=== PATIENT | female | born 1940 | race Caucasian/White ===

== ENCOUNTER → 2017-01-06 08:21 | Outpatient (CLI) | payer MEDICARE, OTHER ==
[2017-01-06 09:29] LABS: BASOPHILS 0.3 % (0-2); EOSINOPHILS 2.1 % (0-7); HEMOGLOBIN 15.2 g/dL (12-16); IMMATURE GRANULOCYTES 0.3 % (0-5); LYMPHOCYTES 18.3 % (15-50); MCH 30.2 pg (26.0-34.0); MCV 91.3 fL (80.0-100.0); MEAN PLATELET VOLUME 12.2 fL (7.4-10.4); PLATELET COUNT 190 10x3/uL (130-400); RBC 5.04 10x6/uL (4.00-5.40); RDW 13.6 % (11.5-14.5); WBC 9.7 10x3/uL (4.8-10.8)
[2017-01-06 09:37] LABS: CALCIUM 9.3 mg/dL (8.5-10.1); CARBON DIOXIDE 26.5 mmol/L (21.0-32.0); CREATININE - SERUM 1.3 mg/dL (0.6-1.3); POTASSIUM - SERUM 4.5 mmol/L (3.5-5.1)
== END | disposition home or self-care (01) ==
LOC: D.CN 08:21
PROVIDERS: Podiatrist Foot & Ankle Surgery
DX: I10 Essential (primary) hypertension (principal); R06.02 Shortness of breath

== ENCOUNTER 2017-11-02 20:09 | Outpatient (CLI) | payer MEDICARE, OTHER ==
[2017-11-02] VITALS (8 sets, daily range): BP systolic 99–117; BP diastolic 50–69; BMI 26.9
[~2017-11-02] VITALS: Ht 154.9 cm; Wt 64.4 kg
--- NOTE | ~2017-11-02 | HEMODYNAMI ---
PATIENT:KEILA LYLES MEDICAL RECORD: [id number] : 44 [id number] ADMISSION DATE: 11/02/17 Generatedon:11/02/201722:04 Patient name: KEILA LYLES Patient #: [id number] SSN: : 1940 Date of study: 11/02/2017 Page: Of Hemodynamic Procedure Report Patient Data Patient Demographics Procedure consent was obtained First Name: KEILA Gender: Female Last Name: TRUPTI : 1940 Middle Initial: W Age: 77 year(s) Patient #: [id number] Race: Unknown Additional ID: [id number] Contact details [address]: [address] [place] [address] State: [place] City: [place] Zip code: [address] Admission Admission Data Admission Date: 11/02/2017 Admission Time: 20:09 Procedure Procedure Types Cath Procedure Diagnostic Procedure LHC LHC w/Coronaries Procedure Description Procedure Date Procedure Date: 11/02/2017 Procedure Start Time: 21:28 Procedure End Time: 21:38 Procedure Staff Name Function Jayson Kendall MD Performing Physician Lisa Angulo RT Monitor Misti Rogers RT Scrub Chuyita Champagne RN Nurse Procedure Data Cath Procedure Fluoroscopy Diagnostic fluoroscopy Total fluoroscopy Time: 1 time: 1 min min Diagnostic fluoroscopy Total fluoroscopy dose: 274 dose: 274 mGy mGy Contrast Material Contrast Material Type Amount (ml) Isovue 300 43 Entry Location Entry Primary Successful Side Size Upsize Upsize Entry Closure Succes sful Closure Location (Fr) 1 (Fr) 2 (Fr) Remarks Device Remarks Femoral Right 6 Fr Exoseal artery Short Estimated blood loss: 5 ml Diagnostic catheters Device Type Used For End Catheter Placement MULTIPACK Pigtail 5 Fr LV Angiography catheter MULTIPACK JL 4.0 5Fr Left Coronary catheter Angiography MULTIPACK 3DRC 5Fr Right Coronary catheter Angiography Procedure Complications No complications Procedure Medications Medication Administration Route Dosage Oxygen NC 2 l/min Heparin Flush Bag added to field 2 bags (1000units/500ml NS) 0.9% NaCl I.V. 100 ml/hr Versed I.V. 1 mg Fentanyl I.V. 100 mcg Versed I.V. 1 mg Fentanyl I.V. 100 mcg Hemodynamics Rest Heart Rate: 102 (bpm) Pressure Samples Time Site Value (mmHg) Purpose Heart Use Rate(bpm) 21:29 LV 107/5,37 Snapshot 117 Snapshots Pre Cath Intra NCS Post Cath Vital Signs Time Heart Resp SPO2 etCO2 NIBP Rhythm Pain Sedation Rate (ipm) (%) (mmHg) (mmHg) Status Level (bpm) 21:19:11 102 32 100 14.8 127/72(96) NSR 0 (11) 10(A) , No pain 21:23:50 101 16 100 19.3 111/59(86) NSR 0 (11) 10(A) , No pain 21:28:28 102 16 93 33.4 116/62(88) NSR 0 (11) 10(A) , No pain 21:33:05 112 16 95 0 119/64(92) NSR 0 (11) 9(A) , No pain 21:37:41 114 16 96 0 120/70(95) NSR 0 (11) 10(A) , No pain 21:43:16 112 20 96 0 110/62(89) NSR 0 (11) 10(A) , No pain 21:50:44 111 17 97 0 110/71(89) NSR 0 (11) 10(A) , No pain Medications Time Medication Route Dose Verified Delivered Reason Notes Effe ctiveness by by 21:18:09 Oxygen NC 2 Jayson Boogie used for l/min Enoch Champagne RN procedure 21:18:37 Heparin Flush added 2 Jayson Tyler used for Bag to bags Enoch Kendall MD procedure (1000units/500ml field NS) 21:18:45 0.9% NaCl I.V. 100 Jayson Boogie Per ml/hr Enoch Champagne RN physician 21:27:51 Versed I.V. 1 mg Jayson Boogie for Enoch Champagne RN sedation 21:27:56 Fentanyl I.V. 100 Jayson Zelayaie for pt has mcg Enoch Champagne RN sedation had recent lower back surgery and is having back pain from lying on table ' 21:33:26 Versed I.V. 1 mg Jayson Boogie for Enoch Champagne RN sedation 21:33:31 Fentanyl I.V. 100 Jayson Boogie for [facility] [place] Enoch Champagne RN sedation Procedure Log Time Note 20:53:59 Chuyita Champagne RN sent for patient. Start room use. 21:04:14 Time tracking: Regular hours (M-F 7:00 - 5:00) 21:04:19 Plan of Care:Hemodynamics will remain stable., Cardiac rhythm will remain stable., Comfort level will be maintained., Respiratory function will remain adequate., Patient/ family verbilizes understanding of procedure., Procedure tolerated without complication., Recovers from procedure without complications.. 21:12:12 Patient received from ED to CCL 1 Alert and oriented. Tansferred to table in Supine position. 21:12:13 Warm blankets applied, and darby hugger turned on for patient comfort. 21:12:13 Correct patient and procedure confirmed by team. 21:12:15 Signed procedure consent form obtained from patient. 21:12:17 ECG and BP/O2 sat monitors applied to patient. 21:18:09 Oxygen 2 l/min NC was administered by Chuyita Champagne RN; used for procedure; 21:18:22 Baseline sample Acquired. 21:18:22 Vital chart was started 21:18:37 Heparin Flush Bag (1000units/500ml NS) 2 bags added to field was administered by Jayson Kendall MD; used for procedure; 21:18:45 0.9% NaCl 100 ml/hr I.V. was administered by Chuyita Champagne RN; Per physician; 21:18:47 Rhythm: sinus tachycardia 21:18:50 Full Disclosure recording started 21:18:56 H&P Date Dictated: 11/02/2017 Within 30 days and on chart., H&P Addendum completed by physician on day of procedure. (MUST COMPLETE FOR ALL OUTPATIENTS). 21:18:58 Pre-procedure instructions explained to patient. 21:18:58 Pre-op teaching completed and patient verbalized understanding. 21:19:02 Family in waiting room. 21:19:06 Patient NPO since Dinner. 21:19:49 Is the patient allergic to Iodine/contrast media? No. 21:19:50 Was the patient premedicated? No 21:23:01 Is patient on blood thinner?Yes 21:23:05 ACC The patient was administered the following blood thiners within the last 24 hours: ACCHeparin 21:23:08 Patient diabetic? Yes. 21:23:09 If diabetic: On Metformin? Yes 21:23:14 If on Metformin: Last Dose? 11/01/2017 21:23:42 Previous problem with sedation/anesthesia? No ? 21:23:44 Snore? No 21:23:45 Sleep apnea? No 21:23:46 Deviated septum? No 21:23:47 Opens mouth fully? Yes 21:23:48 Sticks out tongue? Yes 21:23:50 Airway obstruction? No ? 21:23:53 Dentures? No ? 21:23:57 Pre procedure: right dorsailis pedis pulse 2+ Normal; easily identifiable; not easily obliterated 21:24:00 Pre procedure: left dorsailis pedis pulse 2+ Normal; easily identifiable; not easily obliterated 21:24:02 Patient pain scale 0/10 ?. 21:24:08 IV patent on arrival in left forearm with 0.9% NaCl at [facility]. 21:24:11 Lab results completed and on chart. 21:24:41 Right groin area was prepped with chlora-prep and draped in sterile fashion 21:24:42 Alarms reviewed by R. N. 21:24:42 Sharps counted by scrub and verified by R.N. 21:26:45 Physician arrived 21:26:46 --------ALL STOP TIME OUT------ 21:26:47 Final Timeout: patient, procedure, and site verified with staff and physician. All members of the team are in agreement. 21:26:49 Right groin site verified by team. 21:26:52 Physical assessment completed. ASA score P 2 - A patient with mild systemic disease as per Jayson Kendall MD. 21:26:56 Sedation plan: IV Moderate Sedation Medication:Versed, Fentanyl 21:27:05 Use device set Femoral Dx 21:27:07 ACIST Syringe (63195) opened to sterile field. 21:27:07 Bag Decanter (2002S) opened to sterile field. 21:27:07 Medline Cath Pack ([id number]) opened to sterile field. 21:27:08 SHEATH 5FR [place] (TKX675) opened to sterile field. 21:27:09 DIAGNOSTIC WIRE .035 260cm J wire (646769) opened to sterile field. 21:27:10 ACIST Hand Control (03366) opened to sterile field. 21:27:10 ACIST Manifold (08825) opened to sterile field. 21:27:11 DIAGNOSTIC Multipack 5Fr catheter set (CA6010) opened to sterile field. 21:27:11 Tegaderm 4 x 4 (1626W) opened to sterile field. 21:27:20 Procedure started. 21:27:51 Versed 1 mg I.V. was administered by Chuyita Champagne RN; for sedation; 21:27:54 SHEATH 6Fr Prelude ([id number]) opened to sterile field. 21:27:56 Fentanyl 100 mcg I.V. was administered by Chuyita Champagne RN; for sedation; pt has had recent lower back surgery and is having back pain from lying on table ' 21:28:04 Local anesthetic to right femoral artery with Lidocaine 2% by Jayson Kendall MD.INITIAL ACCESS ONLY 21:28:16 A 6 Fr Short sheath was inserted into the Right Femoral artery 21:30:05 A MULTIPACK Pigtail 5 Fr catheter was advanced over the wire and used for LV Angiography. 21:30:09 LV hemodynamics recorded. 21:30:10 LV gram done using ESQUIVEL 21:30:13 Injector settings: Ml/sec: 5, Volume: 15, 21:30:20 EF : 40 % 21:30:28 Catheter removed. 21:30:33 A MULTIPACK JL 4.0 5Fr catheter was advanced over the wire and used for Left Coronary Angiography. 21:30:56 LCA angiography performed. 21:30:59 Injector settings: Ml/sec: 3, Volume: 6, 21:31:34 Catheter removed. 21:31:56 A MULTIPACK 3DRC 5Fr catheter was advanced over the wire and used for Right Coronary Angiography. 21:32:17 RCA angiography performed. 21:32:33 Injector settings: Ml/sec: 3, Volume: 6, 21:32:40 Catheter removed. 21:32:42 EXOSEAL 5Fr (EX500) opened to sterile field. 21:33:26 Versed 1 mg I.V. was administered by Chuyita Champagne RN; for sedation; 21:33:31 Fentanyl 100 mcg I.V. was administered by Chuyita Champagne RN; for sedation; 21:36:44 Sheath removed intact; hemostasis achieved with Exoseal to the Right Femoral artery. 21:36:46 Procedure ended.(Physican Out) 21:37:50 Fluoroscopy time 01.00 minutes. 21:37:54 Fluoroscopy dose: 274 mGy 21:37:54 Flurop Dose total: 274 21:37:59 Contrast amount:Isovue 300 43ml. 21:38:00 Sharps counted by scrub and verified by R.N. 21:38:01 Insertion/operative site no bleeding no hematoma. 21:38:06 Post-op/insertion site Right Femoral artery dressed using a 4 x 4 and Tegaderm. 21:38:09 Post right femoral artery:stable 21:38:11 Post Procedure Pulses reassessed and unchanged 21:38:14 Post procedure rhythm: unchanged. 21:38:16 Estimated blood loss: 5 ml 21:38:18 Post procedure instruction explained to patient.Patient verbalizes understanding. 21:38:19 Patient needs reinforcement of post procedure teaching. 21:38:32 Procedure and supply charges have been captured, reviewed, submitted and are correct. 21:38:37 Procedure Complication : No complications 21:38:39 Vital chart was stopped 21:38:40 See physician's report for complete and final results. 21:38:44 Report given to CVICU. 21:38:47 Patient transfered to CVICU with Stretcher. 21:38:49 Procedure ended. 21:38:49 Full Disclosure recording stopped 21:38:56 End room use (Document Last) Device Usage Item Name Manufacture Quantity Catalog Hospital Part Current Minimal Lot# / Number Charge Number Stock Stock Serial# Code ACIST Acist 1 48057 106056 646162 274171 20 Syringe Medical (00919) Systems Inc Bag Decanter Microtek 1 2001S 557419 95201 717294 5 () Medical Inc. Medline Cath Cardinal 1 [id number] 270418 23932 469544 5 Pack Health ([id number]) SHEATH 5FR Terumo 1 KHP720 094784 668480 199297 40 Leicester (GXG649) DIAGNOSTIC [facility] [place] 1 689976 160734 141544 969418 30 WIRE .035 260cm J wire (134778) ACIST Hand Acist 1 14890 637950 755265 767009 5 Control Medical (75860) Systems Inc ACIST Acist 1 57562 505690 954875 918782 5 Manifold Medical (86671) Systems Inc DIAGNOSTIC Cardinal 1 [id number] 111259 04193 130126 30 Multipack Health 5Fr catheter set (LU5433) Tegaderm 4 x 3M 1 1626W 435224 490184 543764 5 4 (1626W) SHEATH 6Fr Merit 1 [id number] 099286 827542 312706 5 Prelude Medical ([id number]) MULTIPACK Cardinal 1 785337 5 Pigtail 5 Fr Health catheter MULTIPACK JL Cardinal 1 101666 5 4.0 5Fr Health catheter MULTIPACK Cardinal 1 306359 5 3DRC 5Fr Health catheter EXOSEAL 5Fr Cardinal 1 EX500 049470 707221 564868 10 (EX500) Health Signature Audit [place] Stage Time Signature Unsigned Intra-Procedure 11/02/2017 Lisa Angulo 10:04:19 PM RT(R) Signatures Monitor : Lisa Angulo RT Signature : Date : Time : [address] [place] [address]
--- NOTE | ~2017-11-02 | DS ---
PATIENT:KEILA BARAJAS :44 MEDICAL RECORD: [id number] DISCHARGE SUMMARY ADMISSION DATE: 11/02/17 DISCHARGE DATE: 11/03/17 DISCHARGE DIAGNOSES: 1. Syncope. 2. Abnormal ECG. HOSPITAL COURSE: Ms. Barajas presented with syncope. She had an EKG that was possibly compatible with an acute myocardial infarction; however, cardiac catheterization showed no myocardial infarction. The etiology of the syncope was unknown. She was stable overnight with no dysrhythmias, no further episodes of syncope, no neurologic changes. Discharged home with no change in her medications. Follow up with cardiology on a p.r.n. basis. TRANSINT:[id number] Voice Confirmation ID: [id number] DOCUMENT ID: [id number] KERRI ROGERS MD at 0956 CC: [id number] DICTATION DATE: 11/03/17 1025 BANK MANAGER: 11/03/17 1607 DEP CLI 11/03/17 [address] [place] [address]
--- NOTE | ~2017-11-02 | OP ---
PATIENT NAME: KEILA LYLES MEDICAL RECORD: [id number] :44 LOCATION:[facility] ADMISSION DATE: SURGEON: KERRI ROGERS MD DATE OF OPERATION: 11/02/2017 PROCEDURES: 1. Left heart catheterization. 2. Selective coronary angiography. 3. Left ventriculogram. INDICATIONS: Angina and coronary artery disease, syncope. PROCEDURE IN DETAIL: After informed consent was obtained after explanation of the risks, benefits as well as alternative therapies, the patient elected to proceed with angiogram and heart catheterization. The right femoral area was prepped and draped in normal sterile fashion. Right femoral artery was cannulated via modified Seldinger technique with placement of 6-[place]izen [place] sheath. All catheters were exchanged for sheath. FINDINGS: Left ventriculogram was performed in standard 30-degree ESQUIVEL view reveals apical akinesis. Overall ejection fraction 40%. SELECTIVE CORONARY ANGIOGRAPHY: Left main, left anterior descending and left circumflex, right coronary are all smooth-walled vessels with no angiographic evidence of coronary artery disease. OVERALL IMPRESSION: 1. No angiographic evidence of coronary artery disease. 2. Normal left heart pressures. 3. Normal left ventricular systolic function. 4. No acute myocardial infarction or acute coronary syndrome. Continue medical management of the cardiomyopathy. TRANSINT:[id number] Voice Confirmation ID: [id number] DOCUMENT ID: [id number] KERRI ROGERS MD at 0956 CC: [id number] DICTATION DATE: 11/02/172137 BALLET DANCER: 11/03/17 0245 DEP CLI 11/03/17 [place] [address]
[2017-11-02 21:21] LABS: BASOPHILS 0.1 % (0-2); EOSINOPHILS 0.4 % (0-7); HEMATOCRIT 37.2 % (36.0-48.0); HEMOGLOBIN 12.4 g/dL (12-16); IMMATURE GRANULOCYTES 0.3 % (0-5); LYMPHOCYTES 10.3 % (15-50); MCH 29.2 pg (26.0-34.0); MCHC 33.3 g/dL (31.0-37.0); MCV 87.7 fL (80.0-100.0); MONOCYTES 9.1 % (2-11); NEUTROPHILS 79.8 % (40-80); PLATELET COUNT 188 10x3/uL (130-400); RBC 4.24 10x6/uL (4.00-5.40); RDW 14.3 % (11.5-14.5); WBC 9.1 10x3/uL (4.8-10.8)
[2017-11-02 21:24] LABS: INR 1.19 (0.85-1.17); PROTIME 14.6 SECONDS (11.6-15.0)
[2017-11-02 22:29] LABS: APTT > 200.0 SECONDS (22.8-39.4)
[2017-11-02 23:51] LABS: ALBUMIN 3.1 g/dL (3.4-5.0); ALKALINE PHOSPHATASE 71 U/L (46-116); ALT (SGPT) 18 U/L (10-68); BILIRUBIN - TOTAL 0.36 mg/dL (0.2-1.3); CARBON DIOXIDE 24.9 mmol/L (21.0-32.0); CHLORIDE - SERUM 103 mmol/L (98-107); CKMB 10.8 U/L (0.0-3.6); CREATINE KINASE 185 UL (21-215); POTASSIUM - SERUM 3.2 mmol/L (3.5-5.1); PROTEIN - SERUM 6.3 g/dL (6.4-8.2); SODIUM 140 mmol/L (136-145); UREA NITROGEN 16 mg/dL (7-18); eGFR NON AFRICAN AMERICAN 57 mL/min (90-120)
[2017-11-02 23:54] LABS: CALC OSMOLALITY 285 mosm/kg (275-300); GLUCOSE 211 mg/dL (74-106)
[2017-11-02 23:55] LABS: MAGNESIUM - SERUM 0.6 mg/dL (1.8-2.4); TROPONIN-I 4.173 ng/mL (0.000-0.060)
[2017-11-02 23:56] LABS: CALCIUM 6.6 mg/dL (8.5-10.1)
[2017-11-03] VITALS (10 sets, daily range): BP systolic 91–116; BP diastolic 46–65; Ht 154.9 cm; Wt 64.4 kg
[2017-11-03] MEDS ORDERED: NORVASC2.5 MG PO (09:47)
[2017-11-03] MEDS ORDERED: LIPITOR20 MG PO (09:48)
[2017-11-03] MEDS ORDERED: BIOFREEZE118 ML TOPICAL (09:48)
[2017-11-03] MEDS ORDERED: GLUCOTROL 5 MG T5 MG PO (09:49)
[2017-11-03] MEDS ORDERED: FLUTICASONE PRO16 GM NASAL (09:49)
[2017-11-03] MEDS ORDERED: MELATONIN 3 MG1 TAB PO (09:50)
[2017-11-03] MEDS ORDERED: ZESTRIL40 MG PO (09:50)
[2017-11-03] MEDS ORDERED: GLUCOPHAGE1000 MG PO (09:51)
[2017-11-03] MEDS ORDERED: NEXIUM40 MG PO (09:51)
[2017-11-03] MEDS ORDERED: ULTRAM50 MG PO (09:52)
[2017-11-03] MEDS ORDERED: SENNA PLUS TA1 UDTAB PO (09:52)
[2017-11-03] MEDS ORDERED: ACETAMINOPHEN500 M1 PO (09:53)
[2017-11-03] MEDS ORDERED: ZOLOFT100 MG PO (09:54)
== END 2017-11-03 12:31 | disposition home or self-care (01) ==
LOC: OBSVTIME → D.CVICU 20:09 → D.OPS 20:09 → D.ER 20:09 → D.CVICU 22:06 → D.ER 11-03 11:50 → D.OPS 11-03 11:50 → D.CVICU 11-03 11:50 → OBSVTIME 11-03 12:00 → D.CVICU 11-03 12:31 → D.OPS 11-03 12:31 → D.CVICU 11-03 12:31
PROVIDERS: Family Medicine
DX: R55 Syncope and collapse (principal); R94.31 Abnormal electrocardiogram [ECG] [EKG]; I42.9 Cardiomyopathy, unspecified